=== PATIENT | male | born 1970 | race African-American/Black ===

== ENCOUNTER → 2017-10-21 | Outpatient (CLI) | payer OTHER ==
--- NOTE | 2017-10-21 13:19 | Diagnostic Imaging Report ---
ADDENDUM #1 Impression: Alternatively, the defect in the lateral patella, could be due to old fracture/trauma. Signed by: Dr. Franco Singh MD on 10/25/2017 12:20 PM ORIGINAL REPORT EXAM: CT left knee WITHOUT contrast INDICATION: \[id number] \S\[id number] \S\CLOSED FRACTURE OF LEFT PATELLA COMPARISON: None. TECHNIQUE: Left knee scanned utilizing a multidetector helical scanner without administration of IV contrast. Coronal and sagittal reformations were obtained. Routine protocol was performed. IV CONTRAST: None COMPLICATIONS: None RADIATION DOSE: Total DLP: 128.34 mGy*cm Estimated effective dose: (DLP x 0.015 x size factor) mSv CTDIvol has been reviewed. It is below the limits set by the Radiation Protocol Committee (RPC). FINDINGS: No evidence of acute displaced fracture or dislocation. Tiny well-corticated ossified density anterior to the left patella (series 4, image 27), less likely to represent small avulsed fracture fragment. Bipartite patella. Small to moderate size suprapatellar joint effusion. There is also anterior knee subcutaneous edema. IMPRESSION: 1. No evidence of acute displaced fracture or dislocation of the left knee. 2. Bipartite patella. 3. Small to moderate size suprapatellar joint effusion. 4. Tiny well-corticated ossified density anterior to the left patella, less likely to represent small avulsed fracture fragment. Signed by: Dr. Franco Singh MD on 10/21/2017 1:15 PM
== END ==
LOC: CT 11:29 → EDBD 12:00
PROVIDERS: ATTEND Family Medicine
DX: S82.002A Unspecified fracture of left patella, initial encounter for closed fracture (principal)